=== PATIENT | male | born 1950 | race Two or more races ===

== ENCOUNTER 2018-05-22 14:09 | Emergency (ER) | payer MEDICARE, MEDICAID, OTHER ==
[2018-05-22] VITALS (15 sets, daily range): BP systolic 116–132; BP diastolic 64–79
[~2018-05-22] VITALS: Ht 180.3 cm; Wt 95.3 kg
[2018-05-22 14:55] LABS: BASOPHILS % (AUTO) 1.3 % (0.0-2.0); HEMATOCRIT 29.1 % (42.0-52.0); HEMOGLOBIN 9.3 G/DL (14.2-18.0); LYMPHOCYTES % (AUTO) 11.7 % (20.0-45.0); MEAN CORPUSCULAR VOLUME 88 FL (80-99); MONOCYTES % (AUTO) 6.8 % (1.0-10.0); NEUTROPHILS % (AUTO) 73.3 % (45.0-75.0); PLATELET COUNT 202 K/UL (150-450); RED BLOOD COUNT 3.31 M/UL (4.70-6.10); RED CELL DISTRIBUTION WIDTH 12.8 % (11.6-14.8); WHITE BLOOD COUNT 7.8 K/UL (4.8-10.8)
[2018-05-22 15:02] LABS: ANION GAP 15 mmol/L (5-15); BLOOD UREA NITROGEN 24 mg/dL (7-18); CARBON DIOXIDE 22 MMOL/L (21-32); CHLORIDE 104 MMOL/L (98-107); CREATININE 1.6 MG/DL (0.55-1.30); POTASSIUM 3.7 MMOL/L (3.5-5.1); SODIUM 141 MMOL/L (136-145)
[2018-05-22 15:07] LABS: ALANINE AMINOTRANSFERASE 29 U/L (12-78); ALBUMIN 3.8 G/DL (3.4-5.0); ALBUMIN/GLOBULIN RATIO 0.9 (1.0-2.7); ALKALINE PHOSPHATASE 78 U/L (46-116); ASPARTATE AMINO TRANSFERASE 30 U/L (15-37); BILIRUBIN,TOTAL 0.4 MG/DL (0.2-1.0)
[2018-05-22] MEDS ORDERED: LORazepam Inj 2mg/ml 1ml IM ONE (15:30)
--- NOTE | 2018-05-22 15:31 | Emergency Room Report ---
History of Present Illness General Chief Complaint: Alcohol Intoxication Source: EMS (Galina Ortiz) Present Illness HPI 68-year-old male presents to the emergency department brought by EMS for acute alcohol intoxication. Police were called to sober living facility when patient was found to be drinking and having aggressive behavior towards staff of sober living after he was "kicked out "patient reports that he was sober for 9 years and he decided to drink today. Patient states that he has a history of stage IV prostate cancer. Patient is very talkative however difficult to obtain history of present illness and ROS due to patient's poor attention span. Patient denies pain at this time. He denies trauma or fall. Denies CP, Palpitations, LOC, AMS, dizziness, Changes in Vision, N/V or a sudden severe headache. Pt. reports hx of ETOH dependence only denies use of other illicit drugs. (Galina Ortiz) Allergies: Coded Allergies: No Known Allergies (Unverified , 05/22/18) Patient History Past Medical History: see triage record Past Surgical History: none Pertinent Family History: none Social History: Reports: alcohol use Reviewed Nursing Documentation: PMH: Agreed; PSxH: Agreed (Galina Ortiz) Nursing Documentation-PMH Past Medical History: No History, Except For Hx Diabetes: Yes Hx Cancer: Yes Hx Seizures: Yes (Galina Ortiz) Review of Systems All Other Systems: negative except mentioned in HPI (Galina Ortiz) Physical Exam Vital Signs Date Time Temp Pulse Resp B/P (MAP) Pulse Ox O2 Delivery O2 Flow Rate FiO2 05/22/18 14:02 72 18 116/78 98 Room Air Sp02 EP Interpretation: reviewed, normal General Appearance: no apparent distress - very talkative and interactive with slurred speech. , alert, GCS 15, non-toxic Head: normocephalic, atraumatic Eyes: bilateral eye normal inspection, bilateral eye PERRL, bilateral eye other - no icterus, nystagmus or photophobia. ENT: hearing grossly normal, normal voice Neck: full range of motion, no bony tend Respiratory: normal inspection, chest non-tender, lungs clear, normal breath sounds, speaking full sentences Cardiovascular #1: regular rate, rhythm Gastrointestinal: normal bowel sounds, non tender, soft Musculoskeletal: back normal, normal range of motion, non-tender, other - No midline back or neck pain. pt .ambulatory Neurologic: alert, oriented x3, responsive, motor strength/tone normal, sensory intact, speech normal, other - initially staggered gait which did improve throughout ED course, grossly normal Psychiatric: judgement/insight normal, depressed affect - Clinically Inebriated Skin: normal color, no rash, warm/dry, well hydrated, other - no open wounds Lymphatic: no adenopathy (Galina Ortiz) Medical Decision Making PA Attestation Dr. tsang is my supervising Physician whom patient management has been discussed with. Restraint Attestation I, CATHY Torres, have personally evaluated this patient. Laboratory tests have been reviewed and addressed accordingly. The patient is deemed to present a danger to themselves and/or others. This is based on the exam, history ( provided by patient, EMS/[employer] and/or family) and observed or reported behavior. Attempts for non-invasive measures have been considered and/or attempted, however, have been futile. It is in the best interest of the nursing staff, the patient, and others involved in this patient's care that behavioral restraints be applied. Patient evaluation reveals the following: (Galina Ortiz) Diagnostic Impression: Primary Impression: Acute alcoholic intoxication Qualified Codes: F10.929 - Alcohol use, unspecified with intoxication, unspecified ER Course 68-year-old male presents to the emergency department brought by EMS for acute alcohol intoxication. Police were called to sober living facility when patient was found to be drinking and having aggressive behavior towards staff of sober living after he was "kicked out "patient reports that he was sober for 9 years and he decided to drink today. Patient states that he has a history of stage IV prostate cancer. Patient is very talkative however difficult to obtain history of present illness and ROS due to patient's poor attention span. Patient denies pain at this time. He denies trauma or fall. Denies CP, Palpitations, LOC, AMS, dizziness, Changes in Vision, N/V or a sudden severe headache. Pt. reports hx of ETOH dependence only denies use of other illicit drugs. Pt. presents to the ED intoxicated with alcohol, pt. is NAD, pt. is alert, no obvious signs of trauma, He is ambulatory but with a staggered gait. . Ddx considered but are not limited to ETOH, Trauma, Syncope, dementia, OD Vital signs: are WNL, pt. is afebrile H&PE are most consistent with ETOH intoxication, no physical exam findings to suggest trauma. ORDERS: -ETOH: 263 -CMP: Cr: 1.6 and BUN 24 -CBC: mild anemia --At one point patient got up from [facility] and persisted to walk out of the ER he was making mount bleeding, onset about how we should just let him and that he doesn't want to live anymore and that he is going to go walk out in front of the vehicle. ED staff attempted to stop the patient however security had to be contacted. Security patient back to the ER, at this point patient was placed in behavioral restraints until he calmed down. Patient was not on a hold however restraints were necessary as this patient was clinically not sober and could not safely be d/c'd at that time. ED INTERVENTIONS: -Ativan 1mg IM Observance while he detoxifies. Pt. was allowed to sleep/rest. Until clinically sober and can re-assess. DISCHARGE: At this time pt. is stable for d/c to home. Will provide printed patient care instructions, and any necessary prescriptions. Care plan and follow up instructions have been discussed with the patient prior to discharge. Labs Test 05/22/18 14:04 White Blood Count 7.8 K/UL (4.8-10.8) Red Blood Count 3.31 M/UL (4.70-6.10) Hemoglobin 9.3 G/DL (14.2-18.0) Hematocrit 29.1 % (42.0-52.0) Mean Corpuscular Volume 88 FL (80-99) Mean Corpuscular Hemoglobin 28.3 PG (27.0-31.0) Mean Corpuscular Hemoglobin Concent 32.1 G/DL (32.0-36.0) Red Cell Distribution Width 12.8 % (11.6-14.8) Platelet Count 202 K/UL (150-450) Mean Platelet Volume 5.6 FL (6.5-10.1) Neutrophils (%) (Auto) 73.3 % (45.0-75.0) Lymphocytes (%) (Auto) 11.7 % (20.0-45.0) Monocytes (%) (Auto) 6.8 % (1.0-10.0) Eosinophils (%) (Auto) 7.0 % (0.0-3.0) Basophils (%) (Auto) 1.3 % (0.0-2.0) Sodium Level 141 MMOL/L (136-145) Potassium Level 3.7 MMOL/L (3.5-5.1) Chloride Level 104 MMOL/L (98-107) Carbon Dioxide Level 22 MMOL/L (21-32) Anion Gap 15 mmol/L (5-15) Blood Urea Nitrogen 24 mg/dL (7-18) Creatinine 1.6 MG/DL (0.55-1.30) Estimat Glomerular Filtration Rate 43.2 mL/min (>60) Glucose Level 96 MG/DL (74-106) Calcium Level 9.0 MG/DL (8.5-10.1) Total Bilirubin 0.4 MG/DL (0.2-1.0) Aspartate Amino Transf (AST/SGOT) 30 U/L (15-37) Alanine Aminotransferase (ALT/SGPT) 29 U/L (12-78) Alkaline Phosphatase 78 U/L (46-116) Total Protein 7.8 G/DL (6.4-8.2) Albumin 3.8 G/DL (3.4-5.0) Globulin 4.0 g/dL Albumin/Globulin Ratio 0.9 (1.0-2.7) Serum Alcohol 263 mg/dL (Galina Ortiz) ER Course Patient signout to me. He presents with alcohol intoxication. He slept through the night without any problem. No longer suicidal. We'll discharge home. He is in independent living. Said he can't go home at night because very locked the door. He can get in in the morning. (Liu Esteban MD) Last Vital Signs Date Time Temp Pulse Resp B/P (MAP) Pulse Ox O2 Delivery O2 Flow Rate FiO2 05/22/18 14:09 72 18 116/78 98 Room Air (Galina Ortiz) Status: improved (Liu Esteban MD) Disposition: HOME, SELF-CARE Condition: Stable Signed Out To: Dr. Esteban (Galina Otriz) Scripts Unable to Obtain Active Prescriptions or Reported Meds Referrals: NOT CHOSEN IPA/MD,REFERRING (PCP) Patient Instructions: Alcohol Intoxication, [id number] Additional Instructions: Follow-up with your doctor in 7 days. Stop drinking alcohol. Return if symptom worsen. Galina Ortiz May 22, 2018 15:31 Liu Esteban MD May 23, 2018 00:16
[2018-05-23 00:30] VITALS: BP 134/87
[2018-05-23 02:33] VITALS: BP 135/83
[2018-05-23 05:50] VITALS: BP 131/67
[2018-05-23 06:25] VITALS: BP 135/83
== END 2018-05-23 06:26 | disposition home or self-care (01) ==
LOC: EDBD 14:09 → EMR 14:40
DX: F10.129 Alcohol abuse with intoxication, unspecified (principal); E11.9 Type 2 diabetes mellitus without complications; Z86.69 Personal history of other diseases of the nervous system and sense organs
CPT/HCPCS: 36415; 80053; 85025; 96372; 99284; G0480; 80329